=== PATIENT | male | born 1965 | race Caucasian/White ===

== ENCOUNTER 2023-05-27 07:11 | Day surgery (SDC) | payer BC, OTHER ==
[~2023-05-27 07:11] MED LIST: Midazolam 1 MG/ML 2 ML SDV ONE; Propofol 200 MG/20 ML SDV ONE; fentaNYL 100 MCG/2 ML SDV ONE
[2023-05-27] MEDS ORDERED: Lactated Ringers 1,000 ML IV SCH (07:30)
[2023-05-27] MEDS ORDERED: Propofol 200 MG/20 ML SDV ONE (09:01)
== END 2023-05-27 10:19 | disposition home or self-care (01) ==
LOC: JP.SDS 07:11
PROVIDERS: ATTEND Student in an Organized Health Care Education/Training Program
DX: Z12.11 Encounter for screening for malignant neoplasm of colon (principal); K62.1 Rectal polyp; Z86.010 Personal history of colon polyps
CPT/HCPCS: 45380; 88305; J2250; J2704; J3010; J7120